=== PATIENT | female | born 1955 | race African-American/Black ===

== ENCOUNTER → 2016-07-07 21:11 | Emergency (ER) | payer OTHER ==
[~2016-07-07 21:11] MED LIST: ACET500CAP PO; APRES10B PO; ASAB PO; B1100 PO; CHOLESTEROL MED PO; COREG; COREG12 PO; COREG3 PO; COREG6 PO; COUMADIN7.5 MG PO; DEMA20 PO; DSS PO; FORTAMET1000 MG PO; GLUCPH PO; HALF81 PO; HUMALOGPEN SC; ISOSORBIDE ER PO; L40 PO; LAN125 PO; LASIX PO; LEVEMFLXPN SC; LEVEMIR SC; LISINOPRIL PO; LORTAB 5 PO; MAGOX4 PO; MICRO-K10 MEQ PO; NEUR400 PO; NORCO1 TA1 PO; NOVOLOG SC; PERCOCET1 TA4 PO; PRAVAC PO; PRIN2.5 PO; PROVHFA INH; PT UNABLE TO RECALL; QVAR80 MCG INH; SPIRO50 PO; TESS PO; ZANTAC150 MG PO; ZITHROMAX500 MG PO
== END | disposition left against medical advice (07) ==
LOC: ER 21:11
DX: Z53.21 Procedure and treatment not carried out due to patient leaving prior to being seen by health care provider (principal)
CPT/HCPCS: 71020; 80048; 83735; 84484; 85025; 85610; 85730; 93005